=== PATIENT | male | born 1970 | race Caucasian/White ===

== ENCOUNTER 2022-11-11 07:39 | Outpatient (CLI) | payer BC, SELFPAY ==
--- NOTE | 2022-11-11 08:15 | MR_ITS ---
[address] [address] Phone:?[phone] Fax:?[phone] Referring Physician Information: José Manuel Langley M.D. [address] [facility] [address] Phone:?[phone] Fax:?[phone] Patient:Willy Santoro D.O.B:?1970 Sex:?Male Phone:?[phone] [facility] MRN:?[id number] Exam Date:?11/11/2022 ? EXAM: MRI of the LEFT KNEE, without contrast CLINICAL INFORMATION: Male, 52 years old, with left knee pain. INDICATION: Evaluate for meniscal tear. PRIOR SURGERY: None reported. PLAIN FILMS: None available. COMPARISONS: No prior MRIs available. TECHNICAL INFORMATION: Using a 1.5T MR scanner and a localizing surface coil: sagittals: PD, PDFS coronals: PD, STIR axials: PD, T2FS SEDATION: None CONTRAST: None FINDINGS: Knee joint: Effusion: Trace-small left knee effusion. Popliteal cyst: None. Loose bodies: None. Subcutaneous and extra-articular soft tissues: Unremarkable. Ligaments: ACL: Intact ACL anteromedial and posterolateral bundles, without sprain or tear. PCL: Intact PCL, without acute or chronic injury. MCL: Mild thickening involving the proximal one third of the superficial MCL, without MCL tear (axial PD series 3 image 16 and coronal PD series 7 image 18). LCL: Intact LCL, without injury. Posterolateral corner: No posterolateral corner soft tissue injury. Popliteus, biceps femoris, iliotibial band, popliteofibular ligament and lateral gastrocnemius are intact. Posteromedial corner: No posteromedial corner soft tissue injury. Semimembranosus, pes anserine tendons and posterior oblique ligament are without injury, tendinopathy or bursitis. Extensor mechanism: Patellar tendon: Intact, without tendinopathy. Quadriceps tendon: Intact, without tendinopathy. Retinacula: Medial and lateral retinacula are intact. Fat pads: Moderate edema-like signal is present throughout the suprapatellar fat pad (sagittal PDFS series 6 images 14-20). Unremarkable prefemoral and infrapatellar Hoffa's fat pads. Medial compartment: Medial meniscus: Oblique horizontal undersurface tearing of the posterior horn and body measures 3.3 cm (sagittal PDFS series 6 images 7-12 and coronal STIR series 8 images 20-23). Meniscal extrusion measures 5 mm. No parameniscal cyst. Superimposed apical free edge fraying is present within the posterior horn. Medial femoral condyle & tibial plateau: Broad-based mild grade II chondromalacia is present throughout the central, weightbearing aspect of the medial compartment Lateral compartment: Lateral meniscus: No articular surface, meniscosynovial junction or root tear. No displacement, extrusion or parameniscal cyst. Lateral femoral condyle: No chondromalacia or osteochondral abnormality. Lateral tibial plateau: No chondromalacia or osteochondral abnormality. Patellofemoral joint: Patella: Broad-based grade II chondromalacia of the medial facet and median ridge of the patella, without reactive osseous changes. Trochlea: Broad-based grade II chondromalacia of the medial trochlear facet, without reactive osseous changes. Proximal tibiofibular joint: Unremarkable, without evidence of ligament sprain injury, joint effusion or adjacent marrow edema. Bones: No stress/occult fractures or other marrow edema/pathology. IMPRESSION: 1. Oblique horizontal undersurface tearing of the posterior horn and body measures 3.3 cm, with 5 mm of meniscal extrusion. 2. Mild chondromalacia of the medial and patellofemoral compartments. 3. Trace-small knee joint effusion. No popliteal (Rogers's) cyst. 4. Chronic sequela low-grade proximal MCL sprain, without tear. No ACL, PCL, or LCL sprain/tear. 5. Nonspecific moderately edematous appearance of the suprapatellar fat pad, which could reflect fat pad impingement. 6. No lateral meniscal tear or osteochondral abnormality of the lateral compartment. BC Electronically signed on 11/11/2022 11:27:00 AM by Jamshid Tomlin M.D.
== END 2022-11-11 07:40 | disposition home or self-care (01) ==
PROVIDERS: Visit Provider Orthopaedic Surgery Sports Medicine
DX: M25.562 Pain in left knee (principal); M23.207 Derangement of unspecified meniscus due to old tear or injury, left knee; M22.42 Chondromalacia patellae, left knee; M25.462 Effusion, left knee; S83.412A Sprain of medial collateral ligament of left knee, initial encounter
CPT/HCPCS: 73721

== ENCOUNTER 2022-12-10 06:00 | Day surgery (SDC) | payer BC, SELFPAY ==
[2022-12-10] VITALS (12 sets, daily range): BP systolic 107–140; BP diastolic 79–94; PULSE 70–85; RESP 14–20; TEMP 36.6–36.9; O2SAT 95–97; BMI 25.7
[2022-12-10] MEDS: LACTATED RINGERS 1000 ML 1,000 ML 100 ML IV (06:20)
[2022-12-10] MEDS: SODIUM CHLORIDE 0.9 % (FLUSH) 10 ML SYRINGE IVF (06:20)
--- NOTE | 2022-12-10 06:34 | SUR.PREOP ---
Verified patient's home covid test, results negative.
[2022-12-10] MEDS: CEFAZOLIN 2 GM in 0.9 % SODIUM CHLORIDE Mini-bag 100 ML IVPB (07:30)
[2022-12-10] MEDS: ROPIVACAINE 0.5% 30 ML 150 MG INJECTION (07:50)
--- NOTE | 2022-12-10 08:21 | W.ANESCHARGE ---
Anesthesia Charges Start Date/Time Anesthesia Start Date: 12/10/22 Anesthesia Start Time: 07:19 Stop Date/Time Anesthesia Stop Date: 12/10/22 Anesthesia Stop Time: 08:08 Summary Emergency: No
--- NOTE | 2022-12-10 08:30 | PM.ORPRC ---
Procedure Note Date of procedure: 12/10/22 Procedure: PREOPERATIVE DIAGNOSIS: 1. Left knee medial meniscus tear POSTOPERATIVE DIAGNOSIS: 1. Left knee medial meniscus tear PROCEDURE: 1. Left knee arthroscopic partial medial meniscectomy SURGEON: José Manuel Langley M.D. STRATEGIC ACCOUNT DIRECTOR: Erik Jurado PA-C. Of note, an facilities assistant was critical for this case to aid in patient positioning, knee manipulation, instrument exchange, and closure. ANESTHESIA: Spinal EBL: 2ml TOURNIQUET: 25 minutes at 300 torr COMPLICATIONS: None evident INDICATIONS: The patient is a pleasant 52-year-old male who has experienced left knee pain particularly with any twisting or turning. Physical exam was concerning for medial meniscus tear, this was confirmed on MRI. Additionally, attempted nonoperative management has been tried, and failed. Thus, surgery was recommended. FINDINGS: Complex tearing posterior horn to midbody medial meniscus. Grade 2-3 chondromalacia medial femoral condyle. Lateral compartment showed intact lateral meniscus with excellent articular cartilage. Patellofemoral compartment showed grade 2 of the patella median ridge but otherwise grade 1 of the trochlear groove. ACL was intact but slightly with some striations. PCL was intact robust. No loose bodies evident. DESCRIPTION OF PROCEDURE: After a thorough discussion of risks, benefits, and alternatives, the patient was brought to the operating room and placed upon the operating table. Induction of anesthesia was undertaken as previously noted. 2g iv Ancef was administered within 1 hr of incision preoperatively. Appropriate time-out was performed identifying proper patient, site, and procedure. The left lower extremity was prepped and draped in the appropriate sterile fashion using ChloraPrep. The limb was exsanguinated and tourniquet inflated. Anterolateral and anteromedial portals were established with an 11 blade, and a diagnostic arthroscopy was performed. This identified the findings as noted above. Following the diagnostic arthroscopy, a partial medial menisectomy was performed with the combination of basket forceps and a motorized shaver. Following this, the meniscus was re-probed and found to be stable. Approximately 25-30 % of the overall meniscus required resection. At this stage, the shaver was reinserted into the suprapatellar pouch and all remaining meniscal debris was evacuated. Instruments were removed, excess fluid was drained, and closure performed with 4-0 Monocryl with Steri-Strips. Dressings were applied, the tourniquet deflated, and the patient was awoken from anesthesia and transferred to the PACU in stable condition. PLAN: 1. Weightbear as tolerated operative extremity. Crutch / walker ambulation assistance PRN. Straight leg raise to be initiated starting tomorrow by the patient. 2. Ice, acetominophen and/or ibuprofen, and Percocet for pain as needed. 3. Knee range of motion and quad sets/straight leg raise regularly 4. Follow up with PA visit in 7-10 days. for a wound check. Initiate physical therapy at that time
--- NOTE | 2022-12-10 09:01 | W.ANESCHARGE ---
Anesthesia Charges Start Date/Time Anesthesia Start Date: 12/10/22 Anesthesia Start Time: 07:19 Stop Date/Time Anesthesia Stop Date: 12/10/22 Anesthesia Stop Time: 08:08 Summary Emergency: No
== END 2022-12-10 09:34 | disposition home or self-care (01) ==
PROVIDERS: PCP Family Medicine; Visit Provider Orthopaedic Surgery Sports Medicine
PROC: (CPT 29870; principal; 2022-12-10 07:15)
DX: S83.232A Complex tear of medial meniscus, current injury, left knee, initial encounter (principal)
CPT/HCPCS: 29881; 01400; J0690; J1100; J2250; J2400; J2405; J2704; J2795; J7120

== ENCOUNTER 2023-08-08 18:48 | Emergency (ER) | payer BC, SELFPAY ==
[2023-08-08 18:54] VITALS: BP 114/65; PULSE 133; RESP 18; TEMP 37.1; O2SAT 95; BMI 26.4
[2023-08-08] MEDS: FAMOTIDINE 20 MG TABLET 40 MG PO (19:05)
[2023-08-08] MEDS: diphenhydrAMINE 25 MG CAPSULE 50 MG PO (19:05)
[2023-08-08] MEDS: predniSONE 20 MG TABLET 60 MG PO (19:05)
--- NOTE | 2023-08-08 20:03 | ED_ITS ---
HPI - General Adult General Date Seen: 08/08/23 Chief complaint: Allergic Reaction Stated complaint: Hives, itching @ 6 pm Time Seen by Provider: 08/08/23 18:57 Source: patient Mode of arrival: ambulatory Limitations: no limitations History of Present Illness HPI narrative: Patient is a 53-year-old male presenting to the emergency department for itchiness and swelling to his hands and face. He states he knows about 18:00 he was having swelling in became very itchy. He says he was eating a purchase rechecking with some of the sauces he had in his for age. He has no history of allergic reactions or other issues. No recent changes to soap or detergent. Denies chest pain, abdominal pain, nausea, weakness, numbness, diarrhea, fevers, chills, lightheadedness, dizziness. Does state he feels some very mild shortness of breath but also is feeling very anxious and thinks that this was causing the shortness of breath. Related Data Home Medications Medication Instructions Recorded Confirmed ibuprofen 200 mg tablet (Motrin IB) 800 mg PO Q6H PRN 11/02/22 12/21/22 Previous Rx's Medication Instructions Recorded prednisone 50 mg tablet 50 mg PO DAILY #4 tabs 08/08/23 Allergies Allergy/AdvReac Type Severity Reaction Status Date / Time No Known Drug Allergies Allergy Verified 12/16/22 15:59 Review of Systems Status of ROS: Reports: 10 or more systems reviewed and unremarkable except as noted in History and below [facility] Medical History Back pain ?M54.9 - Dorsalgia, unspecified (ICD-10) GERD (gastroesophageal reflux disease) ?K21.9 - Gastro-esophageal reflux disease without esophagitis (ICD-10) Surgical History S/P left knee arthroscopy (12/10/22) ?Z98.890 - Other specified postprocedural states (ICD-10) Hx of hand surgery ?Z98.890 - Other specified postprocedural states (ICD-10) Status post wrist surgery ?Z98.890 - Other specified postprocedural states (ICD-10) History of open reduction and internal fixation (ORIF) procedure ?Z98.890 - Other specified postprocedural states (ICD-10) History of open reduction and internal fixation (ORIF) procedure ?Z98.890 - Other specified postprocedural states (ICD-10) H/O hernia repair ?Z98.890 - Other specified postprocedural states (ICD-10) ?Z87.19 - Personal history of other diseases of the digestive system (ICD-10) Family History Mother Lung cancer Social History Smoking Status: Current every day smoker What tobacco products do you use: cigarettes Smoking packs per day: 1 Smoking cigarettes per day: 20.0 Do you use any of these nicotine containing products: None Second hand tobacco smoke exposure: No How often do you have a drink containing alcohol: 4 or more times a week How many standard drinks containing alcohol do you have on a typical day: 5 or 6 How often do you have six or more drinks on one occasion: Daily or almost daily AUDIT-C Alcohol total score: 10 Non-prescribed substance use: denies use Caffeine: Yes Little interest or pleasure in doing things: not at all Feeling down, depressed, or hopeless: not at all Exam Narrative: Exam Narrative: Const: Well-nourished, Well-developed, in mild distress Eyes: PERRL, no conjunctival injection, and symmetrical lids ENMT: Atraumatic external nose and ears. Moist mucous membranes. Neck: Symmetric, trachea midline, No thyromegaly. CVS: RRR, No murmurs or gallops. Peripheral pulses 2+ and equal in all extremities RESP: Unlabored respiratory effort. Clear to auscultation bilaterally. GI: Nontender/Nondistended, No rebound or guarding. MSK:Extremities w/o deformity, Normal Active ROM Skin: Warm, Dry. Mild swelling and erythema to bilateral upper extremities Neuro: Normal Muscle tone, No focal neurological deficits. Psych: Awake, Alert, & Oriented x3. Appropriate mood and affect. Const: Vital Signs, click to edit/add: Vital Signs - 24 hr 08/08/23 18:54 Temperature 98.7 F Pulse Rate [Right Pulse Oximeter] 133 H Respiratory Rate 18 Blood Pressure [Ri ght Upper Arm] 114/65 Pulse Oximetry 95 Oxygen Delivery Me thod Room Air Course Vital Signs Vital signs: Initial Vital Signs Temperature 98.7 F 08/08/23 18:54 Temperature Source Temporal Artery Scan 08/08/23 18:54 Pulse Rate 133 H 08/08/23 18:54 Respiratory Rate 18 08/08/23 18:54 Blood Pressure 114/65 08/08/23 18:54 Blood Pressure Mean 81 08/08/23 18:54 Blood Pressure Position Sitting 08/08/23 18:54 Pulse Oximetry 95 08/08/23 18:54 Oxygen Delivery Method Room Air 08/08/23 18:54 Vital Signs Temperature 98.7 F 08/08/23 18:54 Pulse Rate 133 H 08/08/23 18:54 Respiratory Rate 18 08/08/23 18:54 Blood Pressure 114/65 08/08/23 18:54 Pulse Oximetry 95 08/08/23 18:54 Oxygen Delivery Method Room Air 08/08/23 18:54 Temperature 98.7 F 08/08/23 18:54 Pulse Rate 133 H 08/08/23 18:54 Respiratory Rate 18 08/08/23 18:54 Blood Pressure 114/65 08/08/23 18:54 Pulse Oximetry 95 08/08/23 18:54 Oxygen Delivery Method Room Air 08/08/23 18:54 Medical Decision Making MDM Narrative Medical decision making narrative: Patient is a 53-year-old male presenting emergency department for appears to be allergic reaction. He has some mild swelling noted. While he does feel short of breath he also states he feels very anxious. At this time I do not hear any stridor and heart and lungs sound clear. I do not believe he is having anaphylactic reaction at this time. He will be given prednisone, Benadryl, Pepcid. After received these medications his symptoms improved he states the swelling looks better and the redness is also improved. He is no longer having any shortness of breath. Most likely that was just from anxiety. Patient was monitored for couple hours and was doing well and is safe for discharge. He does states he took some Celebrex which she had left over shortly before the symptoms started. This could be a side effect from the medication I informed him not to take it anymore. He agrees with this plan. Patient was discharged with steroids and told to take Benadryl Discharge Plan Discharge Clinical Impression: Allergic reaction Patient Disposition: Home, Self-Care Condition: Improved Instructions: General Allergic Reaction (ED) Additional Instructions: Take Benadryl as needed for itching. Take prednisone as directed. Follow-up with primary care provider. Return for new worsening symptoms Prescriptions: New prednisone 50 mg tablet 50 mg PO DAILY Qty: 4 0RF Rx Instructions: Start taking the prednisone on 08/09/2023 in take it daily for 4 days No Action ibuprofen [Motrin IB] 200 mg tablet 800 mg PO Q6H PRN Follow Up/Referrals: Nimesh Goyal MD [Primary Care Provider] - Stand Alone Forms: [employer] Info Instructions
== END 2023-08-08 21:06 | disposition home or self-care (01) ==
PROVIDERS: Emergency Provider Student in an Organized Health Care Education/Training Program; PCP Family Medicine
DX: T78.40XA Allergy, unspecified, initial encounter (principal); L29.9 Pruritus, unspecified
CPT/HCPCS: 99283; A9270; J7512

== ENCOUNTER 2024-07-19 06:47 | Day surgery (SDC) | payer BC, SELFPAY ==
[2024-07-19] VITALS (10 sets, daily range): BP systolic 101–120; BP diastolic 68–98; PULSE 62–73; RESP 16–20; TEMP 36.3–37.1; O2SAT 94–97; BMI 22.9
--- OUTSIDE RECORDS SUMMARY | 2024-07-19 06:50 | XMS_ITS | Clinical Summary ---
Author Organization [employer] [facility] Address [place], [place] [address] Care Team Providers Care Crusher Wet Ground Mica Name Role Phone None Primary Care Provider Unavailabl e Allergies No known active allergies Medications No known medications Active Problems No known active problems Immunizations Name Administration Dates Next Due Tdap 09/22/2011 Social History Tobacco Use Types Packs/Day Years Used Date Smoking Tobacco: Every Day Cigarettes 1.5 15 Smokeless Tobacco: Never Tobacco Cessation:Ready to Q uit: Yes; Counseling Given: Yes Comments:one and a half packs per day Alcohol Use Standard Drinks/Week Comments Yes 4 (1 standard drink = 0.6 oz pur e alcohol) 4 drinks/day PHQ-2 Answer Date Recorded PHQ-2 Score 0 01/29/2019 Sex and Gender Information Value Date Recorded Sex Assigned at Not on file Gender Identity Not on file Sexual Orientation Not on file Obstetrics History Last Filed Vital Signs Vital Sign Reading Time Taken Comments Blood Pressure 124/87 12/29/2018 9:17 AM FREIGHT FORWARDER Pulse 83 12/29/2018 9:17 AM FREIGHT FORWARDER Temperature 36.7 ??C (98 ??F) 12/29/2018 9:17 AM FREIGHT FORWARDER Respiratory Rate 12 09/14/2017 8:06 AM CDT Oxygen Saturation 96% 12/29/2018 9:17 AM FREIGHT FORWARDER Inhaled Oxygen Concentration - - Weight 83.9 kg (185 lb) 07/01/2022 2:31 PM CDT Height 182.9 cm (6') 07/01/2022 2:31 PM CDT Body Mass Index 25.09 07/01/2022 2:31 PM CDT Plan of Treatment Health Maintenance Due Date Last Done Comments HIV for age 15-65 02/04/1987 Hepatitis C screening for age 18-79 02/04/1990 Colonoscopy through age 75 02/04/2017 Lipids for age 45-75 02/04/2017 Depression screening for age 12+ 12/29/2019 12/29/2018, 09/14/2017 Tetanus booster 09/22/2021 09/22/2011 Zoster (shingles) series for age 50+ (1 of 2) 02/04/2022 BMI (ht and wt on same day) for age 18+ 07/01/2023 07/01/2022, 12/29/2018, 06/21/2018, Additional history exists COVID-19 vaccine series ( season) 2023 03/09/2021 Influenza for age 50-64 07/29/2024 Tdap Completed 09/22/2011 Pneumococcal series for age 6-64 Aged Out No longer eligible based on patient's age to complete this topic Medical Devices Implanted Type Area Die Fitter Device Identifier Shelf Expiration Date Model / Serial / Lot Mesh Sowmya Pritchett Perfix Plug - [id number] Implanted:Qty: 1 on 08/05/2009 at [facility] Right: Inguinal DAVOL 12/29/2013 [id number] / / [id number] Advance Directives * Full Code (Latest Code Status on File) Date Activated Date Inactivated Comments 08/05/2009 12:49 PM 08/05/2009 5:57 PM Care Teams Crusher Wet Ground Mica Relationship Specialty Start Date End Date None . PCP - General 05/14/22
--- OUTSIDE RECORDS SUMMARY | 2024-07-19 06:50 | XMS_ITS | Clinical Summary ---
[facility] Address [address], [place] [address] Care Team Providers Care Fiber Analyst Name Role Phone Md POLY Tran Primary Care Provider [phone] Source Comments You are receiving this document as you are listed as the primary care provider,follow-up provider, or the patient has been referred to you for consultation.This is in compliance with the Medicare and[facility] EHR Incentive Program,which states Providers who transition their patient to another setting of careor provider of care or refers their patient to another provider of care shouldprovide summary care record for each transition of care or referral. [facility] Allergies No known active allergies Medications Medication Sig Dispensed Refills Start Date End Date Status ibuprofen (AKA MOTRIN) 200 MG tablet Take 1-2 tablets by mouth 2 times daily. LW Addl Instr:Take with food. 08/01/2009 Active naproxen sodium (ALEVE) 220 MG tablet Take 1 tablet by mouth 2 times daily. LW Addl Instr:Take with food. 08/01/2009 Active unknown medication Indications: PN: 09/08/2009 Active Celecoxib (CELEBREX OR) Active Active Problems Problem Noted Date Diagnosed Date Tobacco use disorder 06/07/2003 Overview (07/20/2017): LW Onset: [id number] ; Tobacco Abuse Resolved Problems Problem Noted Date Diagnosed Date Resolved Date Anxiety state 06/07/2003 10/20/2004 Overview (07/20/2017): LW Onset: [id number] ; Anxiety NOS Social History Tobacco Use Types Packs/Day Years Used Date Smoking Tobacco: Every Day Cigarettes Tobacco Cessation:Ready to Q uit: Not Asked; Counseling Given: Not Answered Sex and Gender Information Value Date Recorded Sex Assigned at Not on file Gender Identity Not on file Sexual Orientation Not on file Last Filed Vital Signs Vital Sign Reading Time Taken Comments Blood Pressure 116/84 04/11/2023 8:07 AM CDT Pulse 99 04/11/2023 8:07 AM CDT Temperature 36.5 ??C (97.7 ??F) 04/11/2023 8 :07 AM CDT Respiratory Rate 14 04/11/2023 8:07 AM CDT Oxygen Saturation 98% 04/11/2023 8:0 7 AM CDT Inhaled Oxygen Concentration - - Weight 76.2 kg (167 lb 15.9 oz) 009 9:53 AM CDT C: 76.2kg Height 185.4 cm (6' 1) 08/05/2009 9:53 AM CDT C: 185.4cm Body Mass Index 22.16 08/05/2009 9:53 AM CDT Plan of Treatment Health Maintenance Due Date Last Done Comments Colon Cancer Screening Plan Due 1970 Hep C Screening (Preventive Services) 1970 PSA Screening Discussion 1970 Pneumococcal (1 - PCV) 02/04/1978 HIV Screening (Preventive Services) 1988 Adult Preventive Visit 02/04/1990 HepB (1) 02/04/1991 Cholesterol 06/07/2008 06/07/2003 Zoster/Shingles (1 of 2) 02/04/2022 COVID-19 Vaccine (2 - 2022-2 4 season) 2023 03/09/2021 Influenza (#1) 2024 09/08/2021, 12/29/2018, 12/26/2017 DTaP/Tdap/Td (3 - Tdap) 08/25/2028 08/25/20 18, 09/22/2011 HepA Aged Out No longer eligi ble based on patient's age to complete this topic Hib Aged Out No longer eligi ble based on patient's age to complete this topic IPV (Polio) Aged Out No longer eligi ble based on patient's age to complete this topic MCV4 Aged Out No longer eligi ble based on patient's age to complete this topic Procedures Procedure Name Priority Date/Time Associated Diagnosis Comments LIPID PANEL & DIRECT LDL (IF NEEDED) Routine 06/07/2003 8:57 AM CDT from Last 3 Months or Most Recently Relevant to Health Maintenance Results * Lipid Panel and Direct LDL(If Needed) (06/07/2003 8:57 AM CDT) Cholesterol/HDL Ratio Screen 2.9 No normal range HP CONVERSION Cholesterol 160 125 - 199 mg/dL HP CONVERSION HDL Cholesterol 55 40 - 60 mg/dL HP CONVERSION Triglycerides 67 0 - 199 mg/dL HP CONVERSION LDL Calculated 92 66 - 129 mg/dL HP CONVERSION 06/07/2003 8:57 AM CDT Branden Umana APRN, [facility] HP CONVERSION from Last 3 Months or Most Recently Relevant to Health Maintenance Care Teams Fiber Analyst Relationship Specialty Start Date [place] [address] PCP - General 03/01/11
[2024-07-19] MEDS: LACTATED RINGERS 1000 ML 1,000 ML 100 ML IV (07:45)
[2024-07-19] MEDS: SODIUM CHLORIDE 0.9 % (FLUSH) 10 ML SYRINGE IVF (07:50)
[2024-07-19] MEDS: CEFAZOLIN 2 GM INJ IVP (08:54)
--- NOTE | 2024-07-19 09:01 | SUR.OPER ---
PATIENT QUESTIONS ANSWERED SATISFACTORILY PREOPERATIVELY.? PATIENT BROUGHT TO OR #3 PER CART.? Patient positioned supine on OR #2 bed.? The perioperative?team supported arms bilaterally on arm boards.? Final approval of positioning by surgeon.? CONTINUOUS IRRIGATION OF THE RIGHT KNEE DURING THE PROCEDURE WITH NACL.
[2024-07-19] MEDS: BUPIVACAINE 0.25% 30 ML INJECTION (09:17)
--- NOTE | 2024-07-19 09:20 | P.ORPRC_ITS ---
Procedure Note Date of procedure: 07/19/24 Procedure: PREOPERATIVE DIAGNOSIS: Right knee medial meniscus tear POSTOPERATIVE DIAGNOSIS: Right knee medial meniscus tear NAME OF OPERATION: Right knee arthroscopic partial medial meniscectomy SURGEON: Branden Swift MD [employer]OT[employer] MACHINE OPERATOR: SHAYY Temple ANESTHESIA: Spinal ESTIMATED BLOOD LOSS: 0 mL COMPLICATIONS: None SPECIMENS: None DRAINS: None PREOPERATIVE ANTIBIOTICS: Ancef 2 gram INDICATIONS: The patient is a 54-year-old with a history of right knee medial pain. MRI scan is consistent with a medial meniscus tear. Despite appropriate nonoperative management, including activity modification, antiinflammatories, [id number] pain medication, bracing, physical therapy, and injections they continue to have pain and disability. Operative intervention was offered. The risks, benefits and expected outcomes were discussed in detail. These included but were not limited to: Infection, bleeding, injury to blood vessel or nerve, venous thromboembolism. All questions were answered to their satisfaction. PROCEDURE: Spinal anesthesia was administered. The patient was placed supine on the operating room table. The right lower extremity was prepped and draped in the usual sterile fashion. The limb was exsanguinated with the Dangelo bandage. The pneumatic tourniquet was inflated to 300 mmHg. A standard anterolateral portal was established. The arthroscope was introduced. The working portal was established anteromedially. Diagnostic arthroscopy was performed with findings as follows: The suprapatellar pouch is normal. Articular surface on the patella is normal. Articular surface on the trochlea is normal. The medial gutter is normal. The medial compartment shows diffuse grade 3 change on the medial femoral condyle, grade 2 change on the medial tibial plateau. The medial meniscus has a complex degenerative tear of the posterior horn, into the midbody. This consists of a horizontal cleavage tear through the posterior horn and a radial component from the leading edge, to the capsule at the midbody, posterior horn junction. The posterior root is intact. The notch shows the ACL to be intact. The lateral compartment shows normal articular cartilage on the lateral femoral condyle and lateral tibial plateau. The lateral meniscus is normal. The lateral gutter is normal. The posterior horn of the medial meniscus was debrided to a stable base using a combination of baskets and christian through both portals. Unstable chondral flaps on the medial femoral condyle were debrided with the shaver through both portals, taken to a stable base. Arthroscopic instruments were removed, the portal sites were Steri-Stripped closed, the knee was infiltrated with 30 mL of 0.25% Marcaine without epinephrine. A dry dressing was applied, the tourniquet was released. Sponge and needle counts were correct x 2. The patient tolerated the procedure well. There were no apparent complications. They were carefully transferred to the hospital bed and taken to the postanesthesia care unit in satisfactory condition. PLAN: The patient will be discharged to home. They may weightbear as tolerates. Range of motion will be unrestricted. They will follow up in the office next week for a wound check.
--- NOTE | 2024-07-19 09:36 | W.ANESCHARGE ---
Anesthesia Charges Start Date/Time Anesthesia Start Date: 07/19/24 Anesthesia Start Time: 08:34 Stop Date/Time Anesthesia Stop Date: 07/19/24 Anesthesia Stop Time: 09:32
--- NOTE | 2024-07-19 10:06 | W.ANESCHARGE ---
Anesthesia Charges Start Date/Time Anesthesia Start Date: 07/19/24 Anesthesia Start Time: 08:34 Stop Date/Time Anesthesia Stop Date: 07/19/24 Anesthesia Stop Time: 09:32
--- NOTE | 2024-07-19 10:07 | SUR.PHASEI ---
Active ice applied
== END 2024-07-19 11:17 | disposition home or self-care (01) ==
PROVIDERS: PCP Family Medicine; Visit Provider Orthopaedic Surgery
PROC: (CPT 29870; principal; 2024-07-19 08:45)
DX: M23.221 Derangement of posterior horn of medial meniscus due to old tear or injury, right knee (principal)
CPT/HCPCS: 29881; 01400; J0665; J0690; J2250; J2405; J2704; J3010; J7120